=== PATIENT | male | born 1980 ===

== ENCOUNTER 2023-08-28 10:49 | Inpatient (IN) | payer OTHER ==
[~2023-08-28 10:49] MED LIST: Bupivacaine PF 0.5% 30 ML VIAL ONE; EPINEPHrine 1 MG/ML AMP ONE; Glucagon 1 MG/ML KIT ONE; Iopamidol 30 ML ONE
[2023-08-28] MEDS ORDERED: Morphine 4 MG/ML VIAL ONE (11:36)
[2023-08-28] MEDS ORDERED: Ketorolac Tromethamine 30 MG/ML VIAL ONE (11:36)
[2023-08-28] MEDS ORDERED: SUGAMMADEX SODIUM 200 MG/2 ML VIAL ONE (11:58)
[2023-08-28] MEDS ORDERED: fentaNYL PF 100 MCG/2 ML SYRINGE ONE (11:58)
[2023-08-28] MEDS ORDERED: Sodium Chloride 0.9% 0 ML ONE (12:02)
[2023-08-28] MEDS ORDERED: Piperacillin/Tazobactam 3.375 GM VIAL ONE (12:02)
[2023-08-28] MEDS ORDERED: Lidocaine 1% PF 5 ML VIAL ONE (12:07)
[2023-08-28] MEDS ORDERED: Succinylcholine 200 MG/10 ml SYRINGE FS ONE (12:07)
[2023-08-28] MEDS ORDERED: PHENYLEPHRINE-NS 100 MCG/ML 10 ML SYRINGE ONE (12:07)
[2023-08-28] MEDS ORDERED: PROPOFOL 200 MG/20 ML VIAL ONE (12:07)
[2023-08-28] MEDS ORDERED: Vecuronium 10 MG VIAL ONE (12:07)
[2023-08-28] MEDS ORDERED: Ondansetron PF 4 MG/2 ML Vial ONE (12:07)
[2023-08-28] MEDS ORDERED: ePHEDrine Sulfate 50 MG/10 ML VIAL ONE (12:07)
[2023-08-28] MEDS ORDERED: Rocuronium Bromide 10 MG/ML (10ML VIAL) ONE (12:07)
[2023-08-28] MEDS ORDERED: Iopamidol 45 ML ONE (12:45)
[2023-08-28] MEDS ORDERED: Indomethacin 50 MG SUPP ONE (12:49)
[2023-08-28] MEDS ORDERED: Sodium Chloride 0.9% 100 ML ONE (14:31)
[2023-08-28] MEDS ORDERED: Ampicillin 2 GM VIAL ONE (14:31)
[2023-08-28] MEDS ORDERED: Morphine 4 MG/ML VIAL SLOW IVP PRN (14:41)
[2023-08-28] MEDS ORDERED: Ondansetron ODT 4 MG TAB PO PRN (14:41)
[2023-08-28] MEDS ORDERED: Ondansetron PF 4 MG/2 ML Vial IVP PRN (14:41)
[2023-08-28] MEDS ORDERED: TETANUS, DIPHTHERIA TOX,ADULT (TDVAX) 0.5 ML VIAL IM ONE (14:41)
[2023-08-28 15:59] VITALS: BMI 38.0
[2023-08-28] MEDS: D5 1/2 NS w/20 mEq KCL 1,000 ML IV SCH ×2 (17:45→21:00)
[2023-08-28] MEDS ORDERED: LevoFLOXacin 750 mg/D5W 750 MG in Premix Bag 1 BAG IVPB SCH (18:00)
[2023-08-29] MEDS: D5 1/2 NS w/20 mEq KCL 1,000 ML IV SCH ×2 (01:00→06:31)
[2023-08-29] MEDS: traMADol HCl 50 MG TAB PO PRN ×2 (03:25→09:22)
[2023-08-29 04:27] LABS: #Eosinphils 0.1 thou/uL (0.0-0.7); #Neutrophils 13.5 thou/uL (1.40-6.50); %Basophils 0.1 % (0.0-1.0); %Eosinophils 0.6 % (0.0-10.0); %Lymphocytes 7.4 % (21.0-51.0); %Monocytes 6.5 % (0.0-10.0); Hematocrit 38.4 % (42.0-52.0); Hemoglobin 12.5 g/dL (14.0-18.0); Mean Corpuscular HGB CONC 32.6 g/dL (32.0-36.0); Mean Corpuscular Hemoglobin 30.3 pg (27.0-31.0); Mean Platelet Volume 9.9 fL (7.4-10.4); Platelet Count 255 10x3/uL (130-400); RBC Distribution Width 15.3 % (11.5-14.5); Red Blood Cell (RBC) Count 4.13 mill/uL (4.70-6.10); White Blood Cell (WBC) Count 15.9 10x3/uL (4.8-10.8)
[2023-08-29 04:59] LABS: ALT (SGPT) 180 U/L (8-55); AST (SGOT) 74 U/L (5-34); Albumin 3.1 g/dL (3.5-5.0); Alkaline Phosphatase 142 U/L (40-110); Anion Gap 12 mmol/L (10-20); BUN (Urea Nitrogen) 14 mg/dL (8.9-20.6); Bilirubin, Total 0.9 mg/dL (0.2-1.2); Calc. Creatinine Clearance 129 mL/min (70-130); Calcium 8.1 mg/dL (7.8-10.44); Carbon Dioxide 24 mmol/L (22-29); Chloride 106 mmol/L (98-107); Estimated GFR 62; Globulin 2.6 g/dL (2.4-3.5); Glucose 114 mg/dL (70-105); Lipase 398 U/L (8-78); Potassium 3.7 mmol/L (3.5-5.1); Protein, Total 5.7 g/dL (6.0-8.3); Sodium 138 mmol/L (136-145)
[2023-08-29 07:59] VITALS: BP 105/65; TEMP 99.9
[2023-08-29] MEDS ORDERED: Pantoprazole 40 MG VIAL IVP SCH (09:00)
[2023-08-29] MEDS ORDERED: Polyethylene Glycol 3350 17 GM Packet PO SCH (09:00)
[2023-08-29] MEDS ORDERED: Senokot S 8.6-50 MG TAB PO SCH (09:00)
== END 2023-08-29 11:00 | disposition home or self-care (01) | DRG 440 ==
LOC: SDC/OP 10:49 → SURG A 14:41
PROVIDERS: ADMIT Specialist; ATTEND Specialist
PROC: 0FC98ZZ Extirpation of Matter from Common Bile Duct, Via Natural or Artificial Opening Endoscopic (ICD-10-PCS; principal; 2023-08-28)
DX: K85.10 Biliary acute pancreatitis without necrosis or infection (principal); K80.50 Calculus of bile duct without cholangitis or cholecystitis without obstruction; I10 Essential (primary) hypertension; Z79.899 Other long term (current) drug therapy
CPT/HCPCS: 36415; 47532; 74330; 80053; 83690; 85025; C1889; C9113; J0171; J0290; J1611; J1650; J1885; J1956; J2270; J2405; J2543; J2704; J3480; J3490; Q9967; S0020